=== PATIENT | female | born 1990 | race Asian ===

== ENCOUNTER 2023-08-08 14:54 | Outpatient (AMB) | payer OTHER, SELFPAY ==
--- NOTE | 2023-08-08 15:03 | MHC.PC.OV ---
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 SurgHx: Cervical Cone Bx then neg FHx: Mom: HTN. Dad: DM Renal disease. mAunt Ovarian or Cervical CA SocHx: Nonsmoker. EtOH Very rare. No drugs Patient presents for preoperative clearance prior to liposuction Procedure: Liposuction surgery Date: ?10/29/2023 Surgeon: ??Ellen Anesthesia: General Cardiac Hx: bNone Pulmonary Hx: None Prior Surgical complications: None Prior Anesthesia Complications: None Coag Issues: None Functional [place]: Does a lot of walking. Able to walk 20,000 steps a day. [facility] Surgical History (Updated 08/08/23 @ 15:11 by Shelley Lau CMA) H/O cone biopsy of cervix Family History (Updated 08/08/23 @ 15:13 by Shelley Lau CMA) Father Diabetes Maternal Aunt Cervical cancer Social History (Updated 08/08/23 @ 15:17 by Shelley Lau CMA) Household Members: None Both parents involved: No Caregiver staying overnight: No Housing: House Are you a primary personal carer to a significant other at home: No Do you presently have visiting nurse or other home services: No 75 years or older and lives alone: No Alcohol intake: current Alcohol intake frequency: does not drink Comment: on occasion Patient Tobacco Use Status: Never used Tobacco e-Cigarette/Vaping Use: Never Used Use of substances other than those prescribed or required for medical reasons: No Have you been hit, kicked, punched, or otherwise hurt by someone within the past year? If so, by whom?: No Do you feel safe in your current relationship?: Yes Is there a partner from a previous relationship who is making you feel unsafe now?: No Are you made to feel afraid or neglected: No Special nathalia needs: No Are you DNR?: No Advance Directives: No Advance Directives Information Provided: No Advance Directives on File: No Healthcare Proxy: No service: No Current occupational status: employed Current occupation: [employer] , [employer] Cognitive needs: No Hearing needs: No Vision needs: No Questionnaire PHQ-9 Over the last 2 weeks, how often have you been bothered by any of the following problems? 1. Little interest or pleasure in doing things: not at all 2. Feeling down, depressed, or hopeless: several days 3. Trouble falling or staying asleep, or sleeping too much: not at all 4. Feeling tired or having little energy: not at all 5. Poor appetite or overeating: not at all 6. Feeling bad about yourself - or that you are a failure or have let yourself or your family down: not at all 7. Trouble concentrating on things, such as reading the newspaper or watching television: not at all 8. Moving or speaking so slowly that other people could have noticed. Or the opposite - being so fidgety or restless that you have been moving around a lot more than usual: not at all 9. Thoughts that you would be better off or of hurting yourself in some way: not at all Total score: 1 Depression Screening Interpretation: Negative Depression Screening Done: Yes Source: Developed by Drs. Nicholas Arredondo, Dionne Parker, Oliver Cottrell and colleagues, with an educational inez from [employer]. Thrive Questionnaire Date Thrive assessed: 08/08/23 I am a: Patient What is your living situation today?: I have a steady place to live Within the past 12 months, did the food you bought not last and you didn't have the money to get more?: Never true Within the past 12 months, did you worry whether your food would run out before you got money to buy more?: Never true Do you have trouble paying for medicines?: No Do you have trouble getting transportation to medical appointments?: No Do you have trouble paying your heating and electricity bill?: No Do you have trouble taking care of your child, family member or friend?: No Do you have trouble with day-to-day activities such as bathing, preparing meals, shopping, managing finances, etc.?: No Are you currently unemployed and looking for a job?: No Are you interested in more education?: Yes THRIVE Score: 0 AUDIT C Alcohol Use Questionnaire (AUDIT-C) 1. How often do you have a drink containing alcohol?: Monthly or less 2. How many drinks containing alcohol do you have on a typical day when you are drinking?: 1 or 2 3. How often do you have six or more drinks on one occasion?: Never Total Score: 1 ELANA-7 AMB Questionnaire ELANA-7 Date ELANA - 7 assessed: 08/08/23 Feeling nervous, anxious, or on edge: 0 = Not at all Not being able to stop or control worryin = Not at all Worrying too much about different things: 0 = Not at all Trouble relaxin = Not at all Being so restless that it is hard to sit still: 0 = Not at all Becoming easily annoyed or irritable: 0 = Not at all Feeling afraid as if something awful might happen: 0 = Not at all Total ELANA-7 score (0-4 normal; 5-9 mild; 10-14 moderate; 15-21 severe): 0 Source: Developed by Drs. Nicholas Arredondo, Dionne Parker, Oliver Cottrell and colleagues, with an educational inez from [employer]. Review of Systems Const Denies chills, Denies fatigue, Denies fever(s), Denies headache(s) and Denies weakness Eyes Denies change in vision ENT Denies dizziness and Denies headache(s) Card Denies chest pain, Denies lightheadedness, Denies dyspnea and Denies other (Palpitations) Resp Denies cough, Denies dyspnea, Denies wheezing and Denies other ( shortness of breath) GI Denies abdominal pain, Denies melena, Denies hematochezia, Denies change in bowel habits, Denies dyspepsia and Denies nausea Denies hematuria and Denies dysuria Musc Denies numbness and Denies tingling Skin/Breast Denies rash, Denies unusual bruising and Denies wounds Neuro Denies dizziness, Denies headache(s), Denies numbness, Denies Sensory deficit (Neuro), Denies tingling, Denies paresthesias and Denies weakness Psych Denies anxiety and Denies depression Endo Denies fatigue Apolinar/Lymph Denies easy bleeding and Denies easy bruising Aller/Immun Denies wheezing Physical exam (Primary Care) Vital Signs: Last Vital Signs Pulse 80 08/08/23 15:05 BP 122/68 08/08/23 15:05 Pulse Ox 98 08/08/23 15:05 Oxygen Delivery Method Room Air 08/08/23 15:05 BMI result Body Mass Index 31.3 Tobacco/Smoking Status: Tobacco use Status Tobacco use date assessed 08/08/23 08/08/23 15:17 Patient Tobacco Use Status Never used Tobacco 08/08/23 15:17 e-Cigarette/Vaping Use Never Used 08/08/23 15:17 PHQ-9: PHQ-9 Score PHQ-9: Total score 1 08/08/23 15:25 Depression Screening Interpretation: Negative Thrive Assessment: Date of Thrive Assessment Date Thrive assessed 08/08/23 08/08/23 15:25 Const General: no acute distress and well developed Nutritional Appearance: well nourished Orientation/consciousness: patient oriented x3 HENMT Head: Yes normocephalic and Yes atraumatic Ears: hearing grossly normal bilaterally and TM's normal bilaterally General nose exam: Normal external nose present and Normal nares present Mouth: Normal oral and palatal mucosa present and moist mucous membranes Teeth and gingiva: dentition normal Throat: Yes posterior oropharynx normal Eyes General: appearance normal, both eyes and all related structures Pupils: Equal, round and reactive pupils present EOM: EOMs intact bilaterally Neck Neck: Yes normal visual inspection, Yes no lymphadenopathy and Yes trachea midline Thyroid: Thyroid normal Carotids: no bruits Lymphatic: no lymphadenopathy noted Chest Chest palpation & inspection: normal inspection of the chest Resp Effort & Inspection: normal respiratory effort Auscultation: clear to auscultation bilaterally Cardio Rate: regular rate Rhythm: regular rhythm Heart sounds: S1 normal heart sound present, S2 normal heart sound present, no gallops, no murmurs and no rubs Bruits: no abdominal aortic bruits and no carotid bruits GI Palpation (GI): No Abdominal aortic bruit present, Soft to palpation, nontender, No hepatosplenomegaly present and No Rebound tenderness present Auscultation: normal bowel sounds General: Yes no CVA tenderness Back/Spine/Pelvis Back: no CVA tenderness Cervical Spine: cervical ROM normal and No Cervical spine tenderness Thoracic/Lumbar Spine: thoraco-lumbar ROM normal, No pain with thoraco-lumbar ROM, No thoracic spinal tenderness and No lumbar spinal tenderness Skin Lesions: no lesions Rashes: no rashes Trauma: no lacerations or abrasions Wounds: no wounds Nails: normal Neuro General: patient oriented x3 and gait normal Cranial nerves: Yes Equal, round and reactive pupils present Cognition (Neuro): normal cognition Gait exam (Neuro): Normal gait present Motor exam (neuro): 5/5 motor strength present throughout Sensory Exam: No Sensory deficit (Neuro) Deep tendon reflexes (DTR's): Right patellar reflex intensity grade: 2+ and Left patellar reflex intensity grade: 2+ Extrem General: Yes normal to inspection and No edema Psych Appearance: grossly normal Affect: normal affect Attitude: cooperative Thought process: Normal thought process present Assessment and Plan Assessment & Plan (1) Preoperative clearance: Code(s): Z01.818 - Encounter for other preprocedural examination Plan: Patient?presents?as?new?patient to?establish?care?and?for?preoperative?clearance?prior?to?liposuction?surgery No?cardiac?or?pulmonary?disease?and?heart?and?lung?exams?are?within?normal?limits?today No?prior?complications?with?surgeries?or?anesthesia No?clotting?disorders Good?functional?reserve Low?risk?patient?for?intermediate?risk?procedure * no?contraindications?to?proceeding?with?proposed?procedure (2) History of cervical dysplasia: Code(s): Z87.410 - Personal history of cervical dysplasia Plan: 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 Panel Fast Today Z00.00 - Encounter for general adult medical examination without abnormal findings IRON PROFILE Today E61.1 - Iron deficiency Complete Blood Count Auto Diff Today Z00.00 - Encounter for general adult medical examination without abnormal findings Lipid Panel Today Z00.00 - Encounter for general adult medical examination without abnormal findings Microalbumin, Random (w Creat) Today I10 - Essential (primary) hypertension TSH reflex Free T4 Today Z00.00 - Encounter for general adult medical examination without abnormal findings UA and rflx microscopic Today Z00.00 - Encounter for general adult medical examination without abnormal findings Coding Level of Care Code New Pt Level 4 (29352) Diagnoses Preoperative clearance Z01.818 History of cervical dysplasia Z87.410 Adult general medical exam Z00.00
[2023-08-08 15:05] VITALS: BP 122/68; PULSE 80; O2SAT 98; BMI 31.3
== END 2023-08-08 16:32 | disposition home or self-care (01) ==
PROVIDERS: PCP Family Medicine; Visit Provider Family Medicine
DX: Z00.00 Encounter for general adult medical examination without abnormal findings (principal); Z87.410 Personal history of cervical dysplasia
CPT/HCPCS: 99385

== ENCOUNTER → 2023-09-06 15:49 | Outpatient (AMB) | payer OTHER, SELFPAY ==
--- NOTE | 2023-09-06 15:59 | MHC.PC.OV ---
Intake Visit Reasons: Back pain Allergies povidone-iodine Allergy (Mild, Verified 08/08/23 15:07) itchy Tobacco use date assessed: 08/08/23 Dental Screening Dental Screen Date: 08/08/23 [facility] Surgical History (Updated 08/08/23 @ 15:11 by Shelley Lau CMA) H/O cone biopsy of cervix Family History (Updated 08/08/23 @ 15:13 by Shelley Lau CMA) Father Diabetes Maternal Aunt Cervical cancer Social History (Updated 08/08/23 @ 15:17 by Shelley Lau CMA) Household Members: None Both parents involved: No Caregiver staying overnight: No Housing: House Are you a primary career resource technician to a significant other at home: No Do you presently have visiting nurse or other home services: No 75 years or older and lives alone: No Alcohol intake: current Alcohol intake frequency: does not drink Comment: on occasion Patient Tobacco Use Status: Never used Tobacco e-Cigarette/Vaping Use: Never Used Special nathalia needs: No service: No Current occupational status: employed Current occupation: [employer] , [employer] Cognitive needs: No Hearing needs: No Vision needs: No Questionnaire Thrive Questionnaire Date Thrive assessed: 08/08/23 ELANA-7 AMB Questionnaire ELANA-7 Date ELANA - 7 assessed: 08/08/23 Source: Developed by Drs. Nicholas Arredondo, Dionne Parker, Oliver Cottrell and colleagues, with an educational inez from [employer]. Physical exam (Primary Care) Tobacco/Smoking Status: Tobacco use Status Tobacco use date assessed 08/08/23 08/08/23 15:17 Patient Tobacco Use Status Never used Tobacco 08/08/23 15:17 e-Cigarette/Vaping Use Never Used 08/08/23 15:17 Thrive Assessment: Date of Thrive Assessment Date Thrive assessed 08/08/23 08/08/23 15:25 Coding
[2023-09-06 16:01] VITALS: BP 112/64; PULSE 91; RESP 14; TEMP 36.6; O2SAT 99; BMI 32.1
--- NOTE | 2023-09-06 16:01 | MHC.OFFWIV ---
Intake Vital Signs 09/06/23 16:01 Height 5 ft Weight 164 lb 6 oz BMI 32.1 BP 112/64 Blood Pressure Location Rt brachial Position Sitting Respiration 14 Pulse 91 Pulse Source Pulse Oximeter Temp 97.8 F Temp Source Temporal Artery Scan Pulse Oximetry (%) 99 Oxygen Delivery Method Room Air Intake Visit Reasons: upper back/ shoulder pain Intake Note: Patient has been experiencing stiff neck and pain when lifting. She states that she usually takes moltrin and it helps with pain but pain has been becoming more severe. 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 Accompanied by: self Allergies povidone-iodine Allergy (Mild, Verified 09/06/23 16:37) itchy Medication List - Last Reconciled 09/06/23 by VIRGINIA RamírezP- acetaminophen (Tylenol Extra Strength) 500 mg PO Q6H PRN ferrous sulfate (Feosol) 325 mg PO DAILY folic acid 0.4 mg PO DAILY ibuprofen (Motrin IB) 200 mg PO Q6H PRN Do you need a note to return to daycare/school/sports/work: No HPI HPI Comments History of Present Illness Details Here today for c/o neck pain started over 1 week ago after lifting box pain is worse on the left side, radiates into the left shoulder Has tried motrin w/o relief Denies fever, headache, red flag neuro symptoms. PFSH Surgical History (Updated 08/08/23 @ 15:11 by Shelley Lau CMA) H/O cone biopsy of cervix Family History (Updated 08/08/23 @ 15:13 by Shelley Lau CMA) Father Diabetes Maternal Aunt Cervical cancer Social History (Updated 08/08/23 @ 15:17 by Shelley Lau CMA) Household Members: None Both parents involved: No Caregiver staying overnight: No Housing: House Are you a primary before and after school daycare worker to a significant other at home: No Do you presently have visiting nurse or other home services: No 75 years or older and lives alone: No Alcohol intake: current Alcohol intake frequency: does not drink Comment: on occasion Patient Tobacco Use Status: Never used Tobacco e-Cigarette/Vaping Use: Never Used Special nathalia needs: No service: No Current occupational status: employed Current occupation: [employer] , [employer] Cognitive needs: No Hearing needs: No Vision needs: No Review of Systems Const All systems reviewed & are unremarkable except as noted in HPI and below Physical Exam Vital Signs: Last Vital Signs Temp 97.8 F 09/06/23 16:01 Pulse 91 09/06/23 16:01 Resp 14 09/06/23 16:01 BP 112/64 09/06/23 16:01 Pulse Ox 99 09/06/23 16:01 Oxygen Delivery Method Room Air 09/06/23 16:01 BMI result Body Mass Index 32.1 Const Other: Awake alert oriented PERRLA, EOMI Neck full range of motion. Pain with lateral rotation worse on left. No cervical spine tenderness. No paraspinal tenderness. Move all extremities x4. Normal strength and tone. Neurovascularly intact. Assessment & Plan Assessment & Plan (1) Acute strain of neck muscle: Comment: Advised to stop taking [id number] NSAIDs. Take meloxicam daily with food. Take this for 2 weeks. Then as needed for pain. Use muscle relaxers as needed. Educated that this may make her tired or today so she should not drive or operate heavy machinery until she knows how this medication Effexor. Supportive care to include topical analgesics available aito-ocs-tpyosyx and warm moist heat. Gentle stretching exercises. If no improvement recommend physical therapy. Code(s): S16.1XXA - Strain of muscle, fascia and tendon at neck level, initial encounter Qualifiers: Encounter type: initial encounter Qualified Code(s): S16.1XXA - Strain of muscle, fascia and tendon at neck level, initial encounter Plan . Medications: New meloxicam 7.5 mg PO DAILY 30 tabs 0RF tizanidine (Zanaflex) 2 mg (1/2 x 4 mg) PO BID 5 days PRN 5 tabs 0RF muscle spasticity Coding Level of Care Code Est Pt Level 4 (16451) Diagnoses Acute strain of neck muscle, initial encounter S16.1XXA Encounter type: initial encounter
== END ==
PROVIDERS: PCP Family Medicine; Visit Provider Nurse Practitioner Family
DX: S16.1XXA Strain of muscle, fascia and tendon at neck level, initial encounter (principal)
CPT/HCPCS: 99214

== ENCOUNTER 2023-12-03 09:25 | Outpatient (AMB) | payer OTHER, SELFPAY ==
--- NOTE | 2023-12-03 09:32 | A.OFFPC_ITS ---
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 She notes procedure performed about a month ago. She notes ongoing soreness/tenderness. She continues to take motren/use cold packs. Pt reports a headache. [facility] Surgical History (Updated 12/03/23 @ 09:42 by Brock Herrera) H/O cone biopsy of cervix Family History (Updated 08/08/23 @ 15:13 by Shelley Lau CMA) Father Diabetes Maternal Aunt Cervical cancer Social History (Updated 08/08/23 @ 15:17 by Shelley Lau CMA) Household Members: None Both parents involved: No Caregiver staying overnight: No Housing: House Are you a primary day care attendant to a significant other at home: No Do you presently have visiting nurse or other home services: No 75 years or older and lives alone: No Alcohol intake: current Alcohol intake frequency: does not drink Comment: on occasion Patient Tobacco Use Status: Never used Tobacco e-Cigarette/Vaping Use: Never Used Special nathalia needs: No service: No Current occupational status: employed Current occupation: [employer] , [place] [employer] Cognitive needs: No Hearing needs: No Vision needs: No Questionnaire Thrive Questionnaire Date Thrive assessed: 08/08/23 ELANA-7 AMB Questionnaire ELANA-7 Date ELANA - 7 assessed: 08/08/23 Source: Developed by Drs. Nicholas Arredondo, Dionne Parker, Oliver Cottrell and colleagues, with an educational inez from [employer]. Review of Systems Const Denies chills, Denies fatigue, Denies fever(s), Reports headache(s) and Denies weakness ENT Denies dizziness and Reports headache(s) Card Denies chest pain, Denies lightheadedness, Denies dyspnea and Denies other (Palpitations) Resp Denies cough, Denies dyspnea, Denies wheezing and Denies other ( shortness of breath) Musc Denies numbness and Denies tingling Neuro Denies dizziness, Reports headache(s), Denies numbness, Denies tingling, Denies paresthesias and Denies weakness Psych Denies anxiety and Denies depression Endo Denies fatigue Aller/Immun Denies wheezing Physical exam (Primary Care) Vital Signs: Last Vital Signs Temp 98.4 F 12/03/23 09:34 Pulse 68 12/03/23 09:34 Resp 12 12/03/23 09:34 BP 112/78 12/03/23 09:34 Pulse Ox 98 12/03/23 09:34 Oxygen Delivery Method Room Air 12/03/23 09:34 BMI result Body Mass Index 30.5 Tobacco/Smoking Status: Tobacco use Status Tobacco use date assessed 08/08/23 12/03/23 09:34 Patient Tobacco Use Status Never used Tobacco 12/03/23 09:34 e-Cigarette/Vaping Use Never Used 12/03/23 09:34 Thrive Assessment: Date of Thrive Assessment Date Thrive assessed 08/08/23 12/03/23 09:34 Const General: no acute distress and well developed Nutritional Appearance: well nourished Orientation/consciousness: patient oriented x3 HENMT Head: Yes normocephalic and Yes atraumatic Eyes General: appearance normal, both eyes and all related structures Pupils: Equal, round and reactive pupils present EOM: EOMs intact bilaterally Resp Effort & Inspection: normal respiratory effort Auscultation: clear to auscultation bilaterally Cardio Rate: regular rate Rhythm: regular rhythm Heart sounds: S1 normal heart sound present, S2 normal heart sound present, no gallops, no murmurs and no rubs Neuro General: patient oriented x3 and gait normal Cranial nerves: Yes Equal, round and reactive pupils present Psych Affect: normal affect Assessment and Plan Assessment & Plan (1) Status post surgery: Code(s): Z98.890 - Other specified postprocedural states Plan: Wounds?are?well?healed. Minimal?tenderness?and?she?can?use?Tylenol (2) Headache: Code(s): R51.9 - Headache, unspecified Plan: Bandlike?headache?across?the?top?of?her?head?primarily Hydrate?well Get?plenty?of?sleep?and?relaxation Try?to?avoid?hair?traction If?still?having?difficulty?with?headaches,?we?can?discuss?at?next?encounter (3) Acne: Code(s): L70.9 - Acne, unspecified Plan: Improving. Follow-up?with?dermatology?as?recommended Coding Level of Care Code Est Pt Level 3 (67314) Diagnoses Status post surgery Z98.890 Headache R51.9 Acne L70.9
[2023-12-03 09:34] VITALS: BP 112/78; PULSE 68; RESP 12; TEMP 36.9; O2SAT 98; BMI 30.5
== END 2023-12-03 10:16 | disposition home or self-care (01) ==
PROVIDERS: PCP Family Medicine; Visit Provider Family Medicine
DX: Z98.890 Other specified postprocedural states (principal); R51.9 Headache, unspecified; L70.9 Acne, unspecified
CPT/HCPCS: 99213

== ENCOUNTER 2023-12-05 09:32 | Outpatient (REF) | payer OTHER, SELFPAY ==
[2023-12-05 11:32] LABS: MANUAL DIFF FLAG NO
[2023-12-05 11:38] LABS: Basophils Percent Auto 0.3 % (0-2); Eosinophils Absolute Auto 0.1 X10*3/uL (0.0-0.4); Eosinophils Percent Auto 2.4 % (0-4); Hematocrit 39.4 % (37.0-47.0); Imm Gran Abs Auto 0.02 X10*3/uL (0.00-0.03); Imm Gran Pct Auto 0.3 % (0.0-0.4); Lymphocytes Absolute Auto 1.8 X10*3/uL (1.2-4.9); Lymphocytes Percent Auto 30.1 % (20-40); Mean Corpuscular Hemoglobin 30.5 pg (27.0-33.0); Mean Corpuscular Volume 92.5 fL (80.0-98.0); Mean Platelet Volume 10.2 fL (9.4-12.3); Monocytes Absolute Auto 0.5 X10*3/uL (0.1-1.2); Monocytes Percent Auto 8.7 % (2-11); Neutrophils Absolute Auto 3.4 x10*3/uL (2.0-8.3); Neutrophils Percent Auto 58.2 % (45-73); Platelet Count 336 X10*3/uL (160-400); Red Blood Count 4.26 X10*6/uL (4.20-5.50); Red Cell Distribution Width 12.3 % (11.0-16.0); White Blood Count 5.9 X10*3/uL (4.8-10.8)
[2023-12-05 11:50] LABS: Appearance Urine Clear; Color Urine Yellow; Glucose Urine UA Negative (Negative); Leukocyte Esterase Urine Negative (Negative); Nitrite Urine Negative (Negative); PH 7.5 (5.0-9.0); Urine Blood Negative (Negative); Urine Ketones Negative (Negative); Urine Protein Negative (Neg-Trace)
[2023-12-05 12:13] LABS: Alanine Aminotransferase 16 U/L (0-31); Albumin Level 4.2 g/dL (3.5-5.0); Alkaline Phosphatase 48 U/L (39-117); Anion Gap 10 (12-20); Aspartate Amino Transferase 18 U/L (5-31); Bilirubin Total 0.6 mg/dL (0.0-1.0); Blood Urea Nitrogen 9 mg/dL (9-16); Calcium 8.9 mg/dL (8.4-10.2); Carbon Dioxide 26 mmol/L (22-29); Chloride 106 mmol/L (96-108); Cholesterol 186 mg/dL (<200); Estimated Glomerular Filt Rate > 60; Glucose Fasting 95 mg/dL (60-99); HDL Cholesterol 53 mg/dL (>40); Iron 111 mcg/dL (30-160); LDL Cholesterol Calculated 116 mg/dL (<100); Percent Iron Saturation 33 % (15-50); Potassium 3.9 mmol/L (3.3-5.1); Sodium 138 mmol/L (135-145); TSH reflex Free T4 1.25 uIU/mL (0.32-4.0); Total Iron Binding Capacity 337 mcg/dL (228-428); Total Protein 7.7 g/dL (6.5-8.0); Triglycerides 89 mg/dL (<150); Unsaturated Iron Binding 226 ug/dL
[2023-12-05 12:18] LABS: Creatinine Urine 152.24 mg/dL; Microalbum/Creatinine Ratio Ur 7.2 ug/mg cr (<30)
== END 2023-12-05 09:33 | disposition home or self-care (01) ==
LOC: HO.WFDLDS 09:32
PROVIDERS: Visit Provider Family Medicine
DX: Z00.00 Encounter for general adult medical examination without abnormal findings (principal); E61.1 Iron deficiency; I10 Essential (primary) hypertension
CPT/HCPCS: 36415; 80053; 80061; 81003; 82043; 82570; 83540; 84443; 85025

== ENCOUNTER 2024-01-30 15:15 | Outpatient (REF) | payer OTHER, SELFPAY ==
[2024-01-30 19:08] LABS: Influenza A PCR NEGATIVE (Negative); Influenza B PCR NEGATIVE (Negative); Resp Syncy Virus RNA Qual PCR NEGATIVE (Negative); SARS COV2 PCR INHOUSE NEGATIVE (Negative)
== END 2024-01-30 15:16 | disposition home or self-care (01) ==
LOC: HO.LNP 15:15
PROVIDERS: PCP Family Medicine; Visit Provider Physician Assistant Medical
DX: J02.9 Acute pharyngitis, unspecified (principal); R53.83 Other fatigue; R09.81 Nasal congestion; R05.9 Cough, unspecified; R50.9 Fever, unspecified
CPT/HCPCS: 0241U; 87880

== ENCOUNTER 2024-01-30 15:15 | Outpatient (AMB) | payer OTHER, SELFPAY ==
--- NOTE | 2024-01-30 15:38 | MHC.PC.OV ---
Vital Signs 01/30/24 15:47 Height 5 ft Weight 153 lb 6 oz BMI 30.0 BP 122/78 Blood Pressure Location Lt brachial Position Sitting Respiration 16 Pulse 100 Pulse Source Pulse Oximeter Temp 99.0 F Temp Source Oral Pulse Oximetry (%) 100 Oxygen Delivery Method Room Air Intake Visit Reasons: Sore throat, cough Intake Note: patient here c/o cough since last th with fever. chest and ear hurts every time she cough. Hand Laminator Required: No Is last menstrual period known: Yes Last menstrual period: 01/11/24 Post menopausal: No Patient : No Allergies povidone-iodine Allergy (Mild, Verified 01/30/24 15:44) itchy shell fish Adverse Reaction (Severe, Uncoded 01/30/24 15:44) Anaphylaxis Tobacco use date assessed: 01/30/24 Dental Screening Dental Screen Date: 01/30/24 Did you have a dental visit in the last 12 months?: No Did you have a dental problem in the last 6 months where you did not have access to dental care?: No Was dental information given to patient?: Patient has dentist HPI HPI Comments History of Present Illness Details This is a 33-year-old female with a past medical history of acne and iron-deficiency presenting for a sick visit. Her symptoms started 7 or 8 days ago. Initially had an itchy, sore throat and fever up to 101 last Saturday. Temp is 99 degrees after taking Motrin at 05:00am today. Endorses sore throat which is 7/10. Throat looks red. Feels fatigued. She has some sinus congestion and some coughing which is not productive. No wheezing or shortness of breath. She has a mild headache. She took a rapid COVID test which was negative. She tried Claritin, Zyrtec, Mucinex D which did not help. She tried a friend's albuterol which also did not help. Denies history of asthma or chronic lung disease. No sick contacts to her knowledge. ROS: Constitutional: No unexplained weight loss, chills or night sweats, see HPI Eyes: No vision changes, blurry vision, double vision, eye pain, eye redness, eye discharge. ENT: No hearing loss, ear pain, sinus pain, see HPI Respiratory: No shortness of breath, sputum production or hemoptysis. Cardiovascular: No chest pain Gastrointestinal: No anorexia, nausea, vomiting or diarrhea. No abdominal pain or blood in stool. Genitourinary: No dysuria, hematuria, urinary frequency. Neurologic: No headache, dizziness, syncope Skin: No rash Physical exam: Constitutional: Alert, in no distress. Eyes: Pupils are equal, round and reactive to light. Extraocular muscles intact. Ear, Nose and Throat: Canals clear. TMs normal. Normal nasal mucosa. Sinuses nontender. Tonsils 2+, erythematous, small amount of exudate on right tonsil Neck: Bilateral submandibular lymphadenopathy Respiratory: Clear to auscultation. Cardiovascular: S1 S2 regular. No murmurs. Gastrointestinal: Abdomen soft, non-tender, non-distended. Normal bowel sounds. No palpable masses. Neurologic: No focal neurological deficits. Skin: No rashes Extremities: Warm and well perfused. No clubbing, cyanosis or edema. Psychiatric: Normal mood and affect [facility] Surgical History (Updated 12/03/23 @ 09:42 by Brock Herrera) H/O cone biopsy of cervix Family History (Updated 08/08/23 @ 15:13 by Shelley Lau [facility]) Father Diabetes Maternal Aunt Cervical cancer Social History (Updated 08/08/23 @ 15:17 by Shelley Lau [facility]) Household Members: None Both parents involved: No Caregiver staying overnight: No Housing: House Are you a primary pet care assistant to a significant other at home: No Do you presently have visiting nurse or other home services: No 75 years or older and lives alone: No Alcohol intake: current Alcohol intake frequency: does not drink Comment: on occasion Patient Tobacco Use Status: Never used Tobacco e-Cigarette/Vaping Use: Never Used Special nathalia needs: No Patient : No service: No Current occupational status: employed Current occupation: [employer] Cognitive needs: No Hearing needs: No Vision needs: No Female Reproductive History Menstrual Date of last menstrual period: 01/11/24 Questionnaire Thrive Questionnaire Date Thrive assessed: 08/08/23 ELANA-7 AMB Questionnaire ELANA-7 Date ELANA - 7 assessed: 08/08/23 Source: Developed by Drs. Nihcolas Arredondo, Dionne Parker, Oliver Cottrell and colleagues, with an educational inez from [employer]. Physical exam (Primary Care) Vital Signs: Last Vital Signs Temp 99.0 F 01/30/24 15:47 Pulse 100 01/30/24 15:47 Resp 16 01/30/24 15:47 BP 122/78 01/30/24 15:47 Pulse Ox 100 01/30/24 15:47 Oxygen Delivery Method Room Air 01/30/24 15:47 BMI result Body Mass Index 30.0 Tobacco/Smoking Status: Tobacco use Status Tobacco use date assessed 01/30/24 01/30/24 15:48 Patient Tobacco Use Status Never used Tobacco 01/30/24 15:39 e-Cigarette/Vaping Use Never Used 01/30/24 15:39 Thrive Assessment: Date of Thrive Assessment Date Thrive assessed 08/08/23 01/30/24 15:39 Results AMB Rapid Strep AMB Rapid Strep Negative Last Edit by Shayna Pacheco CMA on 01/30/24 16:36 Results Reviewed Results Reviewed: Laboratory Last Values Strep Scn Rapid Clinic Negative 01/30/24 16:35 Assessment and Plan Assessment & Plan (1) Sore throat: Code(s): J02.9 - Acute pharyngitis, unspecified (2) Fever: Code(s): R50.9 - Fever, unspecified Qualifiers: Fever type: unspecified Qualified Code(s): R50.9 - Fever, unspecified Plan Patient with 3/4 centor criteria. Exudates on right tonsil today. Given clinical presentation despite negative rapid strep we will prescribe Z-Brian at this time. Change toothbrush after 48 hours on antibiotics. Lungs clear to auscultation. If fever persists despite antibiotics or she develops wheezing or shortness of breath or worsening cough patient was instructed to call for orders for chest x-ray. Triple swab sent to lab. She will continue to wear a mask. Antibiotic side effects and administration reviewed. Tessalon Lurdes ordered. Rest, fluids, Vicks, cool mist humidifier. Follow up if symptoms do not improve after 2-3 days. Orders: Orders SARS-CoV2/FLU/RSV Today J02.9 - Acute pharyngitis, unspecified AMB Rapid Strep Screen Today J02.9 - Acute pharyngitis, unspecified, Z13.9 - Encounter for screening, unspecified Medications: New benzonatate 100 mg PO TID 10 days PRN 30 caps 0RF cough azithromycin For 250 mg dose pack: take 500 mg today (day 1), then 250 mg for 4 days (days 2-5) PO 6 tabs 0RF Coding Level of Care Code Est Pt Level 4 (22539) Complex EM visit Add On G2211 Diagnoses Sore throat J02.9 Fever, unspecified fever cause R50.9 Fever type: unspecified
[2024-01-30 15:47] VITALS: BP 122/78; PULSE 100; RESP 16; TEMP 37.2; O2SAT 100
== END 2024-01-30 17:11 | disposition home or self-care (01) ==
PROVIDERS: PCP Family Medicine; Visit Provider Physician Assistant Medical
DX: J02.9 Acute pharyngitis, unspecified (principal); R50.9 Fever, unspecified; Z13.9 Encounter for screening, unspecified

== ENCOUNTER 2024-06-03 13:48 | Outpatient (AMB) | payer OTHER, SELFPAY ==
--- NOTE | 2024-06-03 14:04 | A.OFFPC_ITS ---
Vital Signs 06/03/24 14:06 Height 5 ft Weight 159 lb 6 oz BMI 31.1 BP 100/78 Blood Pressure Location Lt brachial Position Sitting Pulse 90 Pulse Source Pulse Oximeter Pulse Oximetry (%) 98 Oxygen Delivery Method Room Air Intake Visit Reasons: Headaches Intake Note: Headaches almost every day since around 12/2023 Roll Setter Required: No Allergies povidone-iodine Allergy (Mild, Verified 06/03/24 14:05) itchy shell fish Adverse Reaction (Severe, Uncoded 06/03/24 14:05) Anaphylaxis Tobacco use date assessed: 01/30/24 Dental Screening Dental Screen Date: 01/30/24 HPI Headaches HPI Details History of Present Illness The patient is a 34-year-old female presenting with headaches. She reports the onset of headaches approximately six months ago. Initially, she attributed these headaches to stress or lack of sleep, but they have persisted and even worsened over time. The headaches are described as predominantly unilateral, most frequently affecting the left side but also sometimes bilateral. They occur almost daily, typically starting around midday (12:00 to 1:00 PM). The headaches are not relieved effectively by roko-wbf-wpfwlos medication such as Motrin, even at a dose of 800 mg, although she notes marginal relief when taken prophylactically. Associated symptoms include photophobia and, occasionally, dizziness characterized by feelings of lightheadedness or difficulty focusing. The patient denies any visual aura or significant changes in vision but notes photophobia. The headaches do not disturb her sleep. Attempts to identify triggers point toward possible lifestyle factors but remain inconclusive. She has been eating consistently with no dietary changes and has a regular exercise routine without exacerbation of the headache. She ceased using control early last year due to severe headaches but cannot link the new headaches to any medication changes. The patient recently stopped spironolactone in April, and her menstrual cycle is still adjusting. No family history of headaches or migraines is noted, and a previous eye exam was completed in 2019 with no current use of corrective lenses. Health Maintenance - Regular exercise is maintained. - Patient is advised on adequate hydrati on. - Discussed potential dietary triggers f or headaches, including MSG and reina ficial sweeteners. - Recommended an eye exam for vision ass essment. - Suggested monitoring dietary intake, s pecifically packaged or heavily processed foods. - Discussion on natural supplementation such as Magnesium and Vitamin B complex. - MRI is planned to rule out structural causes. - Scheduled laboratory evaluations to as sess for anemia, thyroid function, and vitamin deficiencies. Social History - The patient is employed, as indicated by references to coworker interactions and workplace stress. - Regular exercise and gym attendance ar e noted, suggesting a level of physical activity. - Dietary habits include home-cooked ankush ls with a focus on soups and vegetables. - Recently returned from vacation, indic ating recent low stress. - Mentions managing stress with regular lifestyle habits, including attending the gym. Review of Systems - Neurological: Denies visual changes, r eports lightheadedness, difficulty focusing, dizziness. - Ophthalmological: Reports photophobia. Results - Tests and Diagnostics: MRI ordered ([facility] authorization and scheduling). Plan - Conduct MRI of the brain - advised to get an eye exam - Comprehensive blood work to evaluate f or anemia, thyroid dysfunction, vitamin deficiencies, and other metabolic contributors to headaches. - Recommend patient to maintain a headac he journal to assess potential triggers and patterns. - Medical Record Assistant on dietary modifications to mi tigate potential headache triggers such as MSG or artificial sweeteners. - Encouraged to maintain adequate hydrat ion and regular physical activity. - Discuss the addition of magnesium and vitamin B complex supplements as a preventative measure. - Schedule follow-up in approximately fo ur weeks for reassessment and evaluation of testing results. Patient was informed and verbally consented to the use of an ambient scribe for clinic note documentation during this visit. Discussion Notes During the consultation, we discussed the likely etiology of the patient's headaches and the importance of ruling out any serious underlying conditions with an MRI. I explained the benefits of lifestyle modifications, including identifying dietary triggers and incorporating natural remedies such as magnesium and vitamin B complexes. The patient was informed about the potential for dietary components, such as MSG and artificial sweeteners, to act as headache triggers. Differential diagnosis included migraines or tension-type headaches, with reassurance provided regarding the low likelihood of serious pathology given her symptoms. We reviewed the potential for rebound headaches due to intermittent use of kmxa-phb-mzxzcuu analgesics. Consent was obtained for all proposed investigations and management strategies. Follow-up was scheduled to discuss results and modify the treatment plan as needed. Patient Instructions - Monitor and journal headache patterns and potential triggers. - Regularly hydrate and consider limitin g intake of processed foods, especially those containing MSG and artificial sweeteners. - Initiate magnesium and vitamin B compl ex supplementation as advised. - Complete scheduled labs and MRI as delvis n as possible. - Return for follow-up in four weeks aft er completing all diagnostic tests and interventions. - Noticeably worsening headache symptoms or new symptoms such as significant visual changes should prompt earlier reassessment. PFS Surgical History (Updated 12/03/23 @ 09:42 by Brock Herrera) H/O cone biopsy of cervix Family History (Updated 08/08/23 @ 15:13 by Shelley Lau [facility]) Father Diabetes Maternal Aunt Cervical cancer Social History (Updated 08/08/23 @ 15:17 by Shelley Lau [facility]) Household Members: None Both parents involved: No Caregiver staying overnight: No Housing: House Are you a primary health care coordinator to a significant other at home: No Do you presently have visiting nurse or other home services: No 75 years or older and lives alone: No Alcohol intake: current Alcohol intake frequency: does not drink Comment: on occasion Patient Tobacco Use Status: Never used Tobacco e-Cigarette/Vaping Use: Never Used Special nathalia needs: No service: No Current occupational status: employed Current occupation: [employer] Cognitive needs: No Hearing needs: No Vision needs: No Questionnaire Thrive Questionnaire Date Thrive assessed: 08/08/23 ELANA-7 AMB Questionnaire ELANA-7 Date ELANA - 7 assessed: 08/08/23 Source: Developed by Drs. Nicholas Arredondo, Dionne Parker, Oliver Cottrlel and colleagues, with an educational inez from [employer]. Physical exam (Primary Care) Vital Signs: Last Vital Signs Pulse 90 06/03/24 14:06 BP 100/78 06/03/24 14:06 Pulse Ox 98 06/03/24 14:06 Oxygen Delivery Method Room Air 06/03/24 14:06 BMI result Body Mass Index 31.1 Tobacco/Smoking Status: Tobacco use Status Tobacco use date assessed 01/30/24 01/30/24 15:48 Patient Tobacco Use Status Never used Tobacco 01/30/24 15:39 e-Cigarette/Vaping Use Never Used 01/30/24 15:39 Thrive Assessment: Date of Thrive Assessment Date Thrive assessed 08/08/23 01/30/24 15:39 Const Orientation/consciousness: patient oriented x3 HENMT Ears: hearing grossly normal bilaterally Neck Thyroid: Thyroid normal Lymphatic: no lymphadenopathy noted Resp Auscultation: clear to auscultation bilaterally Cardio Rate: regular rate Rhythm: regular rhythm Heart sounds: S1 normal heart sound present and S2 normal heart sound present GI Inspection: Yes normal to inspection Palpation (GI): Soft to palpation and Other GI palpation findings present (nontender, no cva tenderness) Auscultation: normoactive bowel sounds Rectal Exam - Female: deferred Skin General skin exam: no rashes or lesions noted Neuro General: patient oriented x3, gait normal, no focal motor deficits, CN's II-XI intact bilaterally and deep tendon reflexes 2+ bilaterally Cognition (Neuro): normal cognition Gait exam (Neuro): Normal gait present Motor exam (neuro): 5/5 motor strength present throughout Sensory Exam: double simultaneous stimulation for sensation normal Coordination: wjertq-ed-mlku test normal, yefk-wv-cbww test normal, tandem gait normal and Romberg test negative Extrem General: Yes normal to inspection Coding Level of Care Code Est Pt Level 4 (47260) Complex EM visit Add On G2211 Diagnoses New daily persistent headache G44.52 Assessment & Plan Assessment & Plan (1) New daily persistent headache: Code(s): G44.52 - New daily persistent headache ([facility]) Category: Medical Plan: . Orders: Orders Comprehensive Met. Panel Today G44.52 - New daily persistent headache ([facility]) Lyme IgG/IgM w/reflex to WB Today G44.52 - New daily persistent headache ([facility]) TSH reflex Free T4 Today G44.52 - New daily persistent headache ([facility]) IRON PROFILE Today G44.52 - New daily persistent headache ([facility]) Complete Blood Count Auto Diff Today G44.52 - New daily persistent headache ([facility]) MR head/brain wo con Today G44.52 - New daily persistent headache ([facility]) Vitamin B12 and Folate Today G44.52 - New daily persistent headache ([facility]) Magnesium Today G44.52 - New daily persistent headache ([facility])
[2024-06-03 14:06] VITALS: BP 100/78; PULSE 90; O2SAT 98; BMI 31.1
== END 2024-06-03 14:37 | disposition home or self-care (01) ==
PROVIDERS: PCP Family Medicine; Visit Provider Physician Assistant
DX: G44.52 New daily persistent headache (NDPH) (principal)

== ENCOUNTER → 2024-06-03 13:48 | Outpatient (BNVA) | payer OTHER, SELFPAY | PROVIDERS: PCP Family Medicine; Visit Provider Physician Assistant ==

== ENCOUNTER 2024-06-03 14:31 | Outpatient (REF) | payer OTHER, SELFPAY ==
[2024-06-03 17:39] LABS: MANUAL DIFF FLAG NO
[2024-06-03 17:48] LABS: Basophils Percent Auto 0.3 % (0-2); Eosinophils Absolute Auto 0.2 X10*3/uL (0.0-0.4); Eosinophils Percent Auto 1.9 % (0-4); Hematocrit 39.8 % (37.0-47.0); Hemoglobin 13.7 g/dl (12.0-16.0); Imm Gran Abs Auto 0.04 X10*3/uL (0.00-0.03); Imm Gran Pct Auto 0.5 % (0.0-0.4); Lymphocytes Percent Auto 22.7 % (20-40); Mean Corpuscular HGB Conc 34.4 g/dl (31.0-35.0); Mean Corpuscular Hemoglobin 30.6 pg (27.0-33.0); Mean Platelet Volume 10.3 fL (9.4-12.3); Monocytes Absolute Auto 0.6 X10*3/uL (0.1-1.2); Monocytes Percent Auto 6.3 % (2-11); Neutrophils Percent Auto 68.3 % (45-73); Platelet Count 323 X10*3/uL (160-400); Red Blood Count 4.47 X10*6/uL (4.20-5.50); Red Cell Distribution Width 11.5 % (11.0-16.0); White Blood Count 8.7 X10*3/uL (4.8-10.8)
[2024-06-03 18:09] LABS: Alanine Aminotransferase 29 U/L (0-31); Albumin Level 4.4 g/dL (3.5-5.0); Alkaline Phosphatase 48 U/L (39-117); Anion Gap 10 (12-20); Aspartate Amino Transferase 26 U/L (5-31); Bilirubin Total 0.2 mg/dL (0.0-1.0); Blood Urea Nitrogen 13 mg/dL (9-16); Calcium 9.9 mg/dL (8.4-10.2); Carbon Dioxide 28 mmol/L (22-29); Chloride 103 mmol/L (96-108); Estimated Glomerular Filt Rate > 60; Glucose Random 93 mg/dL (60-115); Iron 42 mcg/dL (30-160); Magnesium 2.2 mg/dL (1.6-2.6); Percent Iron Saturation 13 % (15-50); Potassium 3.9 mmol/L (3.3-5.1); Sodium 137 mmol/L (135-145); Total Iron Binding Capacity 333 mcg/dL (228-428); Total Protein 8.3 g/dL (6.5-8.0); Unsaturated Iron Binding 291 ug/dL
[2024-06-03 18:23] LABS: TSH reflex Free T4 2.13 uIU/mL (0.32-4.0)
[2024-06-03 18:35] LABS: Folate 8.4 ng/mL (> or = 4.0); Vitamin B12 > 2000 pg/mL (200-900)
[2024-06-04 19:43] LABS: Lyme Abs Screen <0.90 index
== END 2024-06-03 14:32 | disposition home or self-care (01) ==
LOC: HO.WFDLDS 14:31
PROVIDERS: Visit Provider Physician Assistant
DX: G44.52 New daily persistent headache (NDPH) (principal)
CPT/HCPCS: 36415; 80053; 82607; 82746; 83540; 83735; 84443; 85025; 86617; 86618

== ENCOUNTER → 2024-06-04 18:20 | Outpatient (BNV) | payer OTHER, SELFPAY | PROVIDERS: PCP Family Medicine; Visit Provider Radiology Diagnostic Radiology | DX: G44.52 New daily persistent headache (NDPH) (principal) | CPT/HCPCS: 70551 ==

== ENCOUNTER 2024-06-04 18:21 | Outpatient (REF) | payer OTHER, SELFPAY ==
--- NOTE | ~2024-06-04 | MR_ITS ---
EXAMINATION: MR BRAIN WITHOUT IV CONTRAST HISTORY: G44.52 - New daily persistent headache ([facility]) TECHNIQUE: Sagittal T1, and axial T1, FLAIR, T2, gradient echo, and diffusion weighted MR images of the brain were obtained. COMPARISON: None FINDINGS: The brain parenchyma is unremarkable, demonstrating normal leger/white differentiation. No foci of abnormal signal intensity are identified. The ventricular system is normal in size and configuration. There is no mass effect or midline shift. No intra or extra-axial fluid collections are identified. There are no foci of restricted diffusion. Normal vascular flow voids are noted in the basilar and carotid arteries. The visualized paranasal sinuses are clear. There is mild tonsillar and adenoidal hypertrophy. MR/MR head/brain wo con IMPRESSION: Unremarkable MRI of the brain without contrast. Electronically signed by: Nicholas Bennett MD 06/05/2024 07:46 AM EST
== END 2024-06-04 18:22 | disposition home or self-care (01) ==
LOC: HO.MRI 18:21
PROVIDERS: PCP Family Medicine; Visit Provider Physician Assistant
DX: G44.52 New daily persistent headache (NDPH) (principal)
CPT/HCPCS: 70551

== ENCOUNTER 2024-07-02 13:22 | Outpatient (AMB) | payer OTHER, SELFPAY ==
--- NOTE | 2024-07-02 13:38 | MHC.PC.OV ---
Vital Signs 07/02/24 13:51 Height 5 ft Weight 156 lb 4 oz BMI 30.5 BP 116/74 Blood Pressure Location Rt brachial Position Sitting Respiration 12 Pulse 64 Pulse Source Pulse Oximeter Pulse Oximetry (%) 99 Oxygen Delivery Method Room Air Intake Visit Reasons: f/u headaches Intake Note: Follow up headaches Business Systems Administrator Required: No Business Systems Administrator Name: Patient declined Allergies povidone-iodine Allergy (Mild, Verified 07/02/24 13:50) itchy shell fish Adverse Reaction (Severe, Uncoded 07/02/24 13:50) Anaphylaxis Medication List - Last Reconciled 07/02/24 by Jaymie Sol PA-C acetaminophen (Tylenol Extra Strength) 500 mg PO Q6H PRN ferrous sulfate (Feosol) 325 mg PO DAILY folic acid 0.4 mg PO DAILY Tobacco use date assessed: 07/02/24 Dental Screening Dental Screen Date: 01/30/24 HPI f/u headaches HPI Details Patient is a 34-year-old female who presents today for a follow up regarding her headaches. She was recently seen to discuss new onset of frequent headaches. She states since our visit her headaches have actually significantly improved and she only gets 1 a couple times a week that it is usually relieved with OTC analgesics. Sometimes it will linger. She did use her friends sumatriptan 1 time and that was very effective. She is wondering if she can trial this as needed. She did see Ophthalmology and was told that she needed glasses but she got. She had a negative MRI. We did check labs in her B12 was elevated and she states that she was taking a lot of B vitamin supplements. She has since stopped this. She states that she is doing better with hydration and she thinks that that has been helpful. She is getting good quality sleep. She has no acute concerns today. [facility] Surgical History H/O cone biopsy of cervix Family History Father Diabetes Maternal Aunt Cervical cancer Social History (Updated 07/02/24 @ 13:55 by Shayna Pacheco CMA) Household Members: None Both parents involved: No Caregiver staying overnight: No Housing: House Are you a primary resident care technician to a significant other at home: No Do you presently have visiting nurse or other home services: No 75 years or older and lives alone: No Alcohol intake: never Comment: on occasion Patient Tobacco Use Status: Never used Tobacco e-Cigarette/Vaping Use: Never Used Use of substances other than those prescribed or required for medical reasons: No Special nathalia needs: No service: No Current occupational status: employed Current occupation: [employer] , [employer] Cognitive needs: No Hearing needs: No Vision needs: No Questionnaire PHQ-9 Over the last 2 weeks, how often have you been bothered by any of the following problems? 1. Little interest or pleasure in doing things: not at all 2. Feeling down, depressed, or hopeless: not at all 3. Trouble falling or staying asleep, or sleeping too much: not at all 4. Feeling tired or having little energy: not at all 5. Poor appetite or overeating: not at all 6. Feeling bad about yourself - or that you are a failure or have let yourself or your family down: not at all 7. Trouble concentrating on things, such as reading the newspaper or watching television: not at all 8. Moving or speaking so slowly that other people could have noticed. Or the opposite - being so fidgety or restless that you have been moving around a lot more than usual: not at all 9. Thoughts that you would be better off or of hurting yourself in some way: not at all Total score: 0 Depression Screening Interpretation: Negative Depression Screening Done: Yes 29350 - PHQ-9 Billing: Yes Source: Developed by Drs. Nicholas Arredondo, Dionne Parker, Oliver Cottrell and colleagues, with an educational inez from [employer]. Thrive Questionnaire Date Thrive assessed: 07/02/24 I am a: Patient What is your living situation today?: I have a steady place to live Within the past 12 months, did the food you bought not last and you didn't have the money to get more?: I choose not to answer this question Within the past 12 months, did you worry whether your food would run out before you got money to buy more?: Sometimes True Do you have trouble paying for medicines?: No Do you have trouble getting transportation to medical appointments?: No Do you have trouble paying your heating and electricity bill?: No Do you have trouble taking care of your child, family member or friend?: No Do you have trouble with day-to-day activities such as bathing, preparing meals, shopping, managing finances, etc.?: No Are you currently unemployed and looking for a job?: No Are you interested in more education?: No Please select the resources that you would like help with: None Currently or been in a relationship where the following occur: No concerns reported THRIVE Score: 1 AUDIT C Alcohol Use Questionnaire (AUDIT-C) 1. How often do you have a drink containing alcohol?: Never Total Score: 0 ELANA-7 AMB Questionnaire ELANA-7 Date ELANA - 7 assessed: 07/02/24 Feeling nervous, anxious, or on edge: 0 = Not at all Not being able to stop or control worryin = Not at all Worrying too much about different things: 0 = Not at all Trouble relaxin = Not at all Being so restless that it is hard to sit still: 0 = Not at all Becoming easily annoyed or irritable: 0 = Not at all Feeling afraid as if something awful might happen: 0 = Not at all Total ELANA-7 score (0-4 normal; 5-9 mild; 10-14 moderate; 15-21 severe): 0 Source: Developed by Drs. Nicholas Arredondo, Dionne Parker, Oliver Cottrell and colleagues, with an educational inez from [employer]. ELANA-7 Assessment Billing ELANA-7 Assessment Tool: ELANA-7 Assessment 95636 Physical exam (Primary Care) Vital Signs: Last Vital Signs Pulse 64 07/02/24 13:51 Resp 12 07/02/24 13:51 BP 116/74 07/02/24 13:51 Pulse Ox 99 07/02/24 13:51 Oxygen Delivery Method Room Air 07/02/24 13:51 BMI result Body Mass Index 30.5 Tobacco/Smoking Status: Tobacco use Status Tobacco use date assessed 07/02/24 07/02/24 13:55 Patient Tobacco Use Status Never used Tobacco 07/02/24 13:55 e-Cigarette/Vaping Use Never Used 07/02/24 13:55 PHQ-9: PHQ-9 Score PHQ-9: Total score 0 07/02/24 13:55 Depression Screening Interpretation: Negative Thrive Assessment: Date of Thrive Assessment Date Thrive assessed 07/02/24 07/02/24 13:55 Currently or been in a relationship where the following occur: No concerns reported Const Orientation/consciousness: patient oriented x3 HENMT Ears: hearing grossly normal bilaterally Neck Thyroid: Thyroid normal Lymphatic: no lymphadenopathy noted Resp Auscultation: clear to auscultation bilaterally Cardio Rate: regular rate Rhythm: regular rhythm Heart sounds: S1 normal heart sound present and S2 normal heart sound present GI Inspection: Yes normal to inspection Palpation (GI): Soft to palpation and Other GI palpation findings present (nontender, no cva tenderness) Auscultation: normoactive bowel sounds Rectal Exam - Female: deferred Skin General skin exam: no rashes or lesions noted Neuro General: patient oriented x3, gait normal and no focal motor deficits Results Reviewed Results Reviewed: Laboratory Tests 12/05/23 06/03/24 09:34 14:32 WBC 5.9 8.7 RBC 4.26 4.47 Hgb 13.0 13.7 Hct 39.4 39.8 Plt Count 336 323 Sodium 138 137 Potassium 3.9 3.9 Chloride 106 103 Carbon Dioxide 26 28 Anion Gap 10 L 10 L BUN 9 13 Creatinine 0.73 0.80 Estimated GFR > 60 > 60 Random Glucose 93 Fasting Glucose 95 Calcium 8.9 9.9 D Magnesium 2.2 Iron 111 42 AST 18 26 ALT 16 29 Alkaline Phosphatase 48 48 Albumin 4.4 Vitamin B12 > 2000 H Folate 8.4 TSH 1.25 2.13 Lyme Screen IgG & IgM <0.90 MR/MR head/brain wo con IMPRESSION: Unremarkable MRI of the brain without contrast. Coding Level of Care Code Est Pt Level 4 (58478) Diagnoses New daily persistent headache G44.52 Additional Codes ELANA-7 Assessment Billing - ELANA-7 Assessment Tool: ELANA-7 Assessment 03710 ([id number]) PHQ-9 - 60515 - PHQ-9 Billing: Yes ([id number]) Assessment & Plan Assessment & Plan (1) New daily persistent headache: Code(s): G44.52 - New daily persistent headache (NDPH) Category: Medical Plan: Sumatriptan ordered. Discussed risks and benefits and adverse effects of this medication. Advised to trial naproxen or Tylenol if needed. Encouraged her to continue with the avoiding triggers. Follow up if anything worsens or changes. Patient understands and agrees with this plan. Medications: New naproxen 500 mg PO BID PRN 60 tabs 0RF pain sumatriptan succinate (Imitrex) take 1 tab at onset of headache; if no relief may repeat 1 tab after at least 2 hrs; max = 4 tabs/24 hr PO 9 tabs 0RF epinephrine (EpiPen 2-Brian) for 2 doses 0.3 mg (0.3 mL) IM Q10M PRN 2 ea 0RF anaphylaxis
[2024-07-02 13:51] VITALS: BP 116/74; PULSE 64; RESP 12; O2SAT 99; BMI 30.5
== END 2024-07-02 14:22 | disposition home or self-care (01) ==
PROVIDERS: PCP Family Medicine; Visit Provider Physician Assistant
DX: G44.52 New daily persistent headache (NDPH) (principal)

== ENCOUNTER → 2024-07-02 13:22 | Outpatient (BNVA) | payer OTHER, SELFPAY | PROVIDERS: PCP Family Medicine; Visit Provider Physician Assistant | DX: G44.52 New daily persistent headache (NDPH) (principal) | CPT/HCPCS: 96127 ==

== ENCOUNTER 2024-07-29 15:06 | Outpatient (AMB) | payer OTHER, SELFPAY ==
[2024-07-29 15:18] VITALS: BP 122/80; PULSE 100; RESP 20; TEMP 36.8; O2SAT 100; BMI 30.5
--- NOTE | 2024-07-29 15:18 | MHC.OFFWIV ---
Intake Vital Signs 07/29/24 15:18 Height 5 ft Weight 156 lb BMI 30.5 BP 122/80 Blood Pressure Location Lt brachial Position Sitting Respiration 20 Pulse 100 Pulse Source Pulse Oximeter Temp 98.3 F Temp Source Oral Pulse Oximetry (%) 100 Oxygen Delivery Method Room Air Intake Visit Reasons: EP-cough, chest wheezing sound Intake Note: Pt is here today for a walk in visit. Pt c/o cough wheezing sound on her chest. Patient Tobacco Use Status: Never used Tobacco Allergies povidone-iodine Allergy (Mild, Verified 07/29/24 15:21) itchy shell fish Adverse Reaction (Severe, Uncoded 07/29/24 15:21) Anaphylaxis Do you need a note to return to daycare/school/sports/work: No HPI HPI Comments History of Present Illness Details History - The patient is a 34-year-old female presenting with shortness of breath and a persistent cough. - Symptoms began two weeks ago with a scratchy throat, initially thought to be allergies; self-managed with decongestant, Zyrtec, and Motrin. - [facility] advised discontinuation of [id number] medications, suggesting a viral illness and follow-up if symptoms increased after a week. - Symptoms aggravated four days ago, with significant shortness of breath on exertion and coughing. - Patient reports a distinct sound in the chest and experiences no relief from allergy treatments or cough drops. - No history of asthma or COPD; no recent testing for viral infections. - Physical symptoms include chest wheezing and head pressure, with no sinus or ear pain or fevers. Physical Exam General: Cooperative, healthy appearing, comfortable and no acute distress Orientation/consciousness: Patient oriented x3 Limitations: No limitations Head: Normal to inspection Ears: Hearing grossly normal bilaterally, external ears normal and TM's normal bilaterally Nose: Normal external nose present, Normal nares present and No nasal discharge present Face and sinus: Normal facial exam and Yes sinuses nontender Mouth: Normal oral and palatal mucosa present and moist mucous membranes Throat: Yes tonsils normal, Yes uvula midline. Posterior oropharynx erythema Eyes: Appearance normal, both eyes and all related structures Neck: Normal visual inspection Respiratory: Slight expiratory wheeze noted. Normal respiratory effort, able to speak in complete sentences, Actively coughing, no respiratory distress, not tachypneic, no tripod positioning and no use of accessory muscles. Cardiovascular: Regular rate and rhythm. Normal S1 and S2 Skin: No rashes or lesions noted Neuro: Patient oriented x3 Extremities: Normal to inspection and Yes no clubbing, cyanosis or edema PFSH Surgical History H/O cone biopsy of cervix Family History Father Diabetes Maternal Aunt Cervical cancer Social History (Updated 07/02/24 @ 13:55 by Shayna Pacheco CMA) Household Members: None Both parents involved: No Caregiver staying overnight: No Housing: House Are you a primary continuum of care manager to a significant other at home: No Do you presently have visiting nurse or other home services: No 75 years or older and lives alone: No Alcohol intake: never Comment: on occasion Patient Tobacco Use Status: Never used Tobacco e-Cigarette/Vaping Use: Never Used Special nathalia needs: No service: No Current occupational status: employed Current occupation: [employer] , [employer] Cognitive needs: No Hearing needs: No Vision needs: No Review of Systems Const All systems reviewed & are unremarkable except as noted in HPI and below Physical Exam Vital Signs: Last Vital Signs Temp 98.3 F 07/29/24 15:18 Pulse 100 07/29/24 15:18 Resp 20 07/29/24 15:18 BP 122/80 07/29/24 15:18 Pulse Ox 100 07/29/24 15:18 Oxygen Delivery Method Room Air 07/29/24 15:18 BMI result Body Mass Index 30.5 Assessment & Plan Assessment & Plan (1) Atypical pneumonia: Code(s): J18.9 - Pneumonia, unspecified organism Plan: To address the patient's suspected viral upper respiratory infection and associated reactive airway condition, a treatment plan with azithromycin and oral steroids has been established to cover potential bacterial causes and reduce lung inflammation. Azithromycin is prescribed to start tonight, with a Medrol Dosepak beginning tomorrow morning, administered in the morning to prevent sleep issues. Benzonatate can be utilized for nocturnal cough relief to facilitate restful sleep, deviating from codeine products. The importance of monitoring symptoms and following the treatment schedule is emphasized, with instructions to revisit care if symptoms do not improve. Prescriptions have been coordinated with the patient's preferred pharmacy. Patient was informed and verbally consented to the use of an ambient scribe for clinic note documentation during this visit Medications: New methylprednisolone PO PER PKG DIR for 6 days 21 ea 0RF azithromycin For 250 mg dose pack: take 500 mg today (day 1), then 250 mg for 4 days (days 2-5) PO 6 tabs 0RF benzonatate 200 mg PO BEDTIME PRN 10 caps 0RF cough Coding Level of Care Code Est Pt Level 3 (29688) Diagnoses Atypical pneumonia J18.9
--- OUTSIDE RECORDS SUMMARY | 2024-07-29 17:10 | XMS_ITS | Continuity of Care Document ---
Author Organization [facility] Address [address] [place] [id number] Insurance Providers Payer Plan Claims Address Claims Phone Policy Number Group Number Relation Employer Guarantor Name Guarantor Guarantor Address Guarantor Phone [facility] [id number] Self Jaime Cachorro [address] [place] [address] [id number] Problems Condition ICD9 code ICD10 code SNOMED code Start Date End Date S tatus Encounter for screening for other metabolic disorders Z13.228 Results No Results Allergies, adverse reactions, alerts No known allergies and adverse reactions Medications No administered medications reported Vital Signs No vital signs reported Social History No smoking Hx information available
== END 2024-07-29 15:32 | disposition home or self-care (01) ==
PROVIDERS: PCP Family Medicine; Visit Provider Physician Assistant
DX: J18.9 Pneumonia, unspecified organism (principal)

== ENCOUNTER 2025-03-09 14:33 | Outpatient (AMB) | payer OTHER, SELFPAY ==
--- NOTE | 2025-03-09 15:01 | MHC.PC.OV ---
Vital Signs 03/09/25 15:10 Height 5 ft Weight 140 lb BMI 27.3 BP 108/72 Blood Pressure Location Rt brachial Position Sitting Respiration 12 Pulse 72 Pulse Source Pulse Oximeter Temp 98 F Temp Source Oral Pulse Oximetry (%) 98 Oxygen Delivery Method Room Air Intake Visit Reasons: Right shoulder pain Intake Note: Follow up right shoulder pain. Went to [facility] 01/26/2025 [employer] Trap Man Required: No Allergies povidone-iodine Allergy (Mild, Verified 03/09/25 15:05) itchy shell fish Adverse Reaction (Severe, Uncoded 03/09/25 15:05) Anaphylaxis Medication List - Last Reconciled 03/09/25 by Cole Chilel MD acetaminophen (Tylenol Extra Strength) 500 mg PO Q6H PRN clindamycin phosphate 1% 1 appl topical BID cyclobenzaprine 10 mg PO BEDTIME epinephrine (EpiPen 2-Brian) 0.3 mg (0.3 mL) IM Q10M PRN ferrous sulfate (Feosol) 325 mg PO DAILY meloxicam 15 mg PO DAILY sumatriptan succinate (Imitrex) take 1 tab at onset of headache; if no relief may repeat 1 tab after at least 2 hrs; max = 4 tabs/24 hr PO tirzepatide (weight loss) (Zepbound) mg subcut tretinoin 0.1% 1 appl topical BEDTIME Tobacco use date assessed: 07/02/24 Dental Screening Dental Screen Date: 03/09/25 Did you have a dental visit in the last 12 months?: Yes Did you have a dental problem in the last 6 months where you did not have access to dental care?: No Was dental information given to patient?: Patient has dentist HPI Right shoulder pain HPI Details 35 y/o female presents today with complaints of R shoulder pain. Notes pain x2 months and had went to urgent care. Has been using cyclobenzaprine, meloxicam for relief. Has not trialed physical therapy yet. Had Xray at Urgent Care - [facility] Surgical History H/O cone biopsy of cervix Family History Father Diabetes Maternal Aunt Cervical cancer Social History (Updated 07/02/24 @ 13:55 by Shayna Pacheco CMA) Household Members: None Both parents involved: No Caregiver staying overnight: No Housing: House Are you a primary veterinarian laboratory animal care to a significant other at home: No Do you presently have visiting nurse or other home services: No 75 years or older and lives alone: No Alcohol intake: never Comment: on occasion Patient Tobacco Use Status: Never used Tobacco e-Cigarette/Vaping Use: Never Used Special nathalia needs: No service: No Current occupational status: employed Current occupation: [employer] , [employer] Cognitive needs: No Hearing needs: No Vision needs: No Questionnaire Thrive Questionnaire Date Thrive assessed: 07/02/24 I am a: Patient What is your living situation today?: I have a steady place to live Within the past 12 months, did the food you bought not last and you didn't have the money to get more?: I choose not to answer this question Within the past 12 months, did you worry whether your food would run out before you got money to buy more?: Sometimes True Do you have trouble paying for medicines?: No Do you have trouble getting transportation to medical appointments?: No Do you have trouble paying your heating and electricity bill?: No Do you have trouble taking care of your child, family member or friend?: No Do you have trouble with day-to-day activities such as bathing, preparing meals, shopping, managing finances, etc.?: No Are you currently unemployed and looking for a job?: No Are you interested in more education?: No Please select the resources that you would like help with: None Currently or been in a relationship where the following occur: No concerns reported THRIVE Score: 1 ELANA-7 AMB Questionnaire ELANA-7 Date ELANA - 7 assessed: 07/02/24 Source: Developed by Drs. Nicholas Arredondo, Dionne Parker, Oliver Cottrell and colleagues, with an educational inez from [employer]. Physical exam (Primary Care) Vital Signs: Last Vital Signs Temp 98 F 03/09/25 15:10 Pulse 72 03/09/25 15:10 Resp 12 03/09/25 15:10 BP 108/72 03/09/25 15:10 Pulse Ox 98 03/09/25 15:10 Oxygen Delivery Method Room Air 03/09/25 15:10 BMI result Body Mass Index 27.3 Tobacco/Smoking Status: Tobacco use Status Tobacco use date assessed 07/02/24 03/09/25 15:01 Patient Tobacco Use Status Never used Tobacco 03/09/25 15:01 e-Cigarette/Vaping Use Never Used 03/09/25 15:01 Thrive Assessment: Date of Thrive Assessment Date Thrive assessed 07/02/24 03/09/25 15:01 Currently or been in a relationship where the following occur: No concerns reported Coding Level of Care Code Est Pt Level 3 (25825) Diagnoses Right shoulder pain M25.511 Assessment & Plan Assessment & Plan (1) Right shoulder pain: Code(s): M25.511 - Pain in right shoulder Category: Medical Plan: Right posterior shoulder pain at trapezius and levator scapula Likely recurrent use strain Encouraged relative rest Ice/heat NSAIDs; continue meloxicam Will give her a steroid taper Start physical therapy/occupation therapy. If not improving will refer to ortho Orders: Orders PT Evaluation and Treatment Today M25.511 - Pain in right shoulder OT Evaluation and Treatment Today M25.511 - Pain in right shoulder, M79.601 - Pain in right arm Medications: New cyclobenzaprine 10 mg PO BEDTIME 14 tabs 3RF 14 days M25.511 - Pain in right shoulder prednisone 4 tabs daily for 4 days, 3 tabs daily for 2 days, 2 tabs daily for 2 days, 1 tab daily for 2 days PO daily; 28 tabs 0RF 10 days meloxicam 15 mg PO DAILY 30 tabs 0RF 30 days
[2025-03-09 15:10] VITALS: BP 108/72; PULSE 72; RESP 12; TEMP 36.6; O2SAT 98; BMI 27.3
--- OUTSIDE RECORDS SUMMARY | 2025-03-09 18:59 | XMS_ITS ---
Author Name [facility] Organization Unknown Care Team Organization Name Specialty Phone Email Start Date End Da te [facility] NULL Primary Care 05/21/2022 12/30/2023 [facility] NULL Primary Care 03/20/2022 12/30/2023
== END 2025-03-09 15:55 | disposition home or self-care (01) ==
LOC: HO.HMCFM 14:34
PROVIDERS: PCP Family Medicine; Visit Provider Family Medicine
DX: M25.511 Pain in right shoulder (principal)